=== PATIENT | female | born 1975 | race Two or more races ===

== ENCOUNTER 2018-09-07 16:34 | Emergency (ER) | payer OTHER ==
[~2018-09-07] VITALS: Ht 167.6 cm; Wt 79.4 kg
[2018-09-07] MEDS ORDERED: ZOLOFT50 MG (17:27)
== END 2018-09-07 19:35 | disposition home or self-care (01) ==
LOC: ER 16:34
DX: J06.9 Acute upper respiratory infection, unspecified (principal)